=== PATIENT | female | born 1955 | race Caucasian/White ===

== ENCOUNTER 2018-01-30 08:26 | Day surgery (SDC) | payer OTHER ==
[2018-01-30] MEDS ORDERED: LIDOCAINE 1% MDV (10MG/ML) 20ML VIAL SQ ONE (08:27)
[2018-01-30] MEDS ORDERED: PROPOFOL 10 MG/ML VIAL IV ONE (08:27)
--- NOTE | 2018-02-11 12:30 | Operative Note ---
DATE OF SURGERY: 01/30/2018 SURGEON: Richard London MD OPERATION: COLONOSCOPY. INDICATIONS: This is a 62-year-old female with history of colon polyps who had colonoscopy about 3 years ago and presented for surveillance colonoscopy. POSTOPERATIVE DIAGNOSES: 1. Two 6-8 mm sessile polyps in the ascending colon that were removed by cold snare. 2. A 6 mm sessile polyp in the sigmoid colon that was removed by cold snare. 3. A 5 mm sessile polyp in the rectum that was removed by cold snare. ANESTHESIA: Sedation is per Anesthesia. Pulse oximetry was monitored throughout the procedure to maintain O2 saturation of 90% or greater. Supplemental oxygen was administered via nasal cannula. Cardiac and vital signs were monitored throughout the duration of the procedure, and they were stable. The procedure of colonoscopy and risks and alternatives of the procedure, including the risk of bleeding and perforation, among others, were explained to the patient who voiced understanding and agreed to have the procedure done. Physical examination was performed, and the patient was found stable for sedation. PROCEDURE: The patient was placed in the left lateral position. Sedation was initiated. A digital rectal exam was performed and showed some mild external hemorrhoids with no palpable rectal masses. An Olympus PCF-180AL colonoscope was then inserted into the rectum under direct visualization. It was advanced to the cecum without difficulty. The ileocecal valve and appendiceal orifice were identified and photographed. The colonic mucosa was carefully examined upon introduction of the colonoscope. In the ascending colon were two 6-8 mm sessile polyps that were noted and they were removed by cold snare. There were no other lesions noted. The colonoscope was then withdrawn while carefully examining the colonic mucosal surfaces. The cecum, the rest of the ascending colon, transverse colon, and descending colon appeared normal. In the sigmoid colon was a 6 mm sessile polyp that was removed by cold snare. The colonoscope was then withdrawn into the rectum and a 5 mm sessile polyp was noted and was removed by cold snare. Retroflexion was performed and grade 1 internal hemorrhoids were noted. The colonoscope was then withdrawn and the procedure was terminated. The patient tolerated the procedure well without any immediate complications. The patient remained with stable vital signs and was transferred to the recovery room. RECOMMENDATIONS: 1. The patient should be on a high-fiber diet. 2. The patient is to have a repeat colonoscopy for surveillance in 3 or 5 years. Thank you for allowing me to participate in the care of your patient. CC: DO ANGELINE Rich
== END 2018-01-30 10:50 | disposition home or self-care (01) ==
LOC: HOP 08:26
PROVIDERS: ATTEND Internal Medicine Gastroenterology
DX: Z09 Encounter for follow-up examination after completed treatment for conditions other than malignant neoplasm (principal); Z86.010 Personal history of colon polyps; D12.2 Benign neoplasm of ascending colon; D12.5 Benign neoplasm of sigmoid colon; D12.8 Benign neoplasm of rectum; K64.0 First degree hemorrhoids; J44.9 Chronic obstructive pulmonary disease, unspecified

== ENCOUNTER 2018-11-08 12:50 | Observation (INO) | payer OTHER ==
[2018-11-08] MEDS ORDERED: METHYLPREDNISOLONE PF 125MG/VIAL IVP ONE (12:58)
[2018-11-08] MEDS ORDERED: IPRATROPIUM/ALBUTEROL (0.5MG/3MG) NEB INH ONE (12:58)
--- NOTE | 2018-11-08 13:05 | Emergency Department Record ---
History of Present Illness - General Chief Complaint: Cough Stated Complaint: COUGH,ALESSANDRA Time Seen by Provider: 11/08/18 12:52 Source: Patient, Family Mode of Arrival: Ambulatory Limitations: No limitations - History of Present Illness Initial Comments: 63 yo female presents with progressive cough with congestion and shortness of breath. Her cough has been productive. She has COPD and an extensive smoking history. No fever. No leg swelling. The sputum is a clear froth like substance. MD Complaint: Cough, Shortness of breath -: Week(s) Severity: Moderate Quality: Other Consistency: Constant Improves With: Rest Worsens With: Coughing, Exertion Known History Of: COPD Context: Recent URI, Other Associated Symptoms: Chest pain, Cough - Related Data Home Medications Medication Instructions Recorded Confirmed Last Taken Citalopram Hydrobromide 10 mg PO DAILY 11/08/18 11/08/18 11/08/18 [Citalopram HBr] Allergies Allergy/AdvReac Type Severity Reaction Status Date / Time aspirin Allergy Severe VOMITING Verified 11/08/18 12:55 ether Allergy Severe CONVULSIONS Verified 11/08/18 12:55 Review of Systems Constitutional: Reports: Weakness. Denies: Chills, Fever Eyes: Denies: Eye discharge ENT: Reports: Congestion Respiratory: Reports: Cough, Dyspnea, Wheezes. Denies: Hemoptysis Cardiovascular: Reports: Chest pain (with cough), Dyspnea on exertion. Denies: Palpitations, Syncope Endocrine: Reports: Fatigue Gastrointestinal: Denies: Abdominal pain, Diarrhea, Nausea, Vomiting Genitourinary: Denies: Dysuria, Urgency Musculoskeletal: Denies: Arthralgia, Back pain, Joint swelling, Myalgia Skin: Denies: Bruising, Change in color, Rash Neurological: Denies: Headache Psychiatric: Denies: Anxiety Hematological/Lymphatic: Denies: Blood Clots, Easy bleeding, Easy bruising Past Medical History - SOCIAL HISTORY Smoking Status: Current every day smoker - RESPIRATORY Hx Respiratory Disorders: Yes Hx COPD: Yes Hx Pneumonia: Yes - CARDIOVASCULAR Hx Cardio Disorders: No Comment:: . - NEURO Hx Neuro Disorders: Yes Hx Headaches: Yes - GI Hx GI Disorders: Yes Hx Abdominal Pain: Yes (intermittent) Hx of Polyps: Yes Comment:: hx of colon cancer - Hx Genitourinary Disorders: Yes Hx Kidney Stones: Yes - ENDOCRINE Hx Endocrine Disorders: Yes Hx Thyroid Disease: Yes - MUSCULOSKELETAL Hx Musculoskeletal Disorders: Yes Hx Arthritis: Yes (rheumatoid, osteo arthritis) - PSYCH Hx Psych Problems: No - HEMATOLOGY/ONCOLOGY Hx Hematology/Oncology Disorders: Yes Hx Anemia: Yes Hx Cancer: Yes (colon cancer) Hx Chemotherapy: No Hx Radiation Therapy: No Family Medical History Hx Cancer: Father, Brother/Sister *Cancer Comment: father-throat, sister-lung, brother-skin, aunt-breast Hx Heart Disease: Father, Mother, Brother/Sister Physical Exam - General General Appearance: Alert, Oriented x3, Cooperative, No acute distress Limitations: No limitations - Head Head exam: Atraumatic, Normal inspection - Eye Eye exam: Normal appearance, PERRL. negative: Conjunctival injection, Periorbital swelling, Scleral icterus - ENT ENT exam: Normal exam Ear exam: Normal external inspection Nasal Exam: Normal inspection Mouth exam: Normal external inspection - Neck Neck exam: Normal inspection - Respiratory Respiratory exam: Accessory muscle use, Decreased breath sounds, Prolonged expiratory, Rhonchi, Wheezes. negative: Normal lung sounds bilaterally, Respiratory distress - Cardiovascular Cardiovascular Exam: Regular rate, Normal rhythm, Normal heart sounds Peripheral Pulses: 2+: Radial (R), Radial (L) - GI/Abdominal GI/Abdominal exam: Soft. negative: Tenderness - Rectal Rectal exam: Deferred - exam: Deferred - Extremities Extremities exam: Normal inspection. negative: Pedal edema, Tenderness - Back Back exam: Denies: CVA tenderness (R), CVA tenderness (L) - Neurological Neurological exam: Alert, Oriented X3 - Psychiatric Psychiatric exam: Normal affect, Normal mood - Skin Skin exam: Dry, Intact, Normal color, Warm Course - Reevaluation(s) Reevaluation #1: The initial oxygen saturation upper 80's to 90. EMR reviewed. Chest CT demonstrated severe emphysema 12/25/17. 11/08/18 13:06 11/08/18 13:07 EKG #1: 13:05 Rate: 78 Rhythm: sinus [place]: normal Intervals: normal ST segments: normal Normal EKG Prior: None 11/08/18 13:10 11/08/18 13:47 The labs were reviewed. No acute significant changes on the CBC or CMP The Troponin and BNP are negative 11/08/18 13:49 The CXR was reviewed. It is consistent with hyperinflation of COPD. No infiltrate or acute process. 11/08/18 14:11 The patient ambulated to the restroom and returned. Her saturation are 85% on room air and her work of breathing increased. I recommend admission for further care. Medical Decision Making - Lab Data Result diagrams: 11/08/18 13:05 11/08/18 13:05 Disposition Disposition: Admit Clinical Impression: COPD with exacerbation Disposition: Still a Patient at [facility] Decision to Admit: Admit from ER Decision to Admit Date: 11/08/18 Decision to Admit Time: 14:12 Condition: (2) Stable Forms: Patient Portal Access Time of Disposition: 14:12 Quality - Quality Measures Quality Measures: N/A - Blood Pressure Screening Does Patient Have Any of the Following: No Blood Pressure Classification: Hypertensive Reading Systolic Measurement: 146 Diastolic Measurement: 98 Screening for High Blood Pressure: < Pre-Hypertensive BP, F/U Documented > [ [id number]] Pre-Hypertensive Follow-up Interventions: Referral to alternative/primary care provider.
[2018-11-08 13:12] LABS: HEMATOCRIT 41.9 % (35.0-47.0); HEMOGLOBIN 13.4 gm/dl (11.6-16.0); MEAN CELL VOLUME 93.5 fl (81-97); MEAN CORPUSCULAR HEMOGLOBIN 29.9 pg (27-33); MEAN PLATELET VOLUME 8.5 fl (7.4-10.4); PLATELET COUNT 447 K/uL (130-400); RED BLOOD COUNT 4.48 M/uL (3.80-5.40); WHITE BLOOD COUNT W/O DIFF 9.1 K/uL (4.2-12.2)
[2018-11-08 13:46] LABS: ALB/GLOB RATIO 1.1 (1.1-1.8); ALKALINE PHOSPHATASE 113 U/L (35-104); ALT/SGPT 15 U/L (<33); AST/SGOT 18 U/L (10.0-35.0); BLOOD UREA NITROGEN 11 mg/dL (8-23); CREATININE 0.6 mg/dL (0.5-0.9); EST GLOMERULAR FILTRATION RATE > 60 mL/min; GLUCOSE,RANDOM 107 mg/dL (74-109); TOTAL PROTEIN 7.6 g/dL (6.6-8.7)
[2018-11-08] MEDS ORDERED: ALBUTEROL SULFATE (0.083%) 2.5 MG/3 ML NEB INH PRN (15:03)
[2018-11-08] MEDS: METHYLPREDNISOLONE PF 125MG/VIAL IVP SCH (15:05)
[2018-11-08] MEDS ORDERED: PNEUM 23-VAL ADULT IM ONE (15:21)
[2018-11-08] MEDS: NICOTINE 21 MG/24 HOUR PATCH TD SCH (17:23)
[2018-11-08] MEDS: IPRATROPIUM/ALBUTEROL (0.5MG/3MG) NEB INH SCH ×2 (17:58→22:19)
[2018-11-08] MEDS: CEFTRIAXONE 1GM/50ML BAG 1 GM/50 ML BAG IVPB SCH (21:55)
[2018-11-08] MEDS: ACETAMINOPHEN 325 MG TAB PO PRN (22:00)
[2018-11-09] MEDS: METHYLPREDNISOLONE PF 125MG/VIAL IVP SCH ×2 (00:06→06:41)
[2018-11-09] MEDS: IPRATROPIUM/ALBUTEROL (0.5MG/3MG) NEB INH SCH ×5 (05:25→21:42)
[2018-11-09] MEDS: ACETAMINOPHEN 325 MG TAB PO PRN ×3 (06:41→22:19)
[2018-11-09] MEDS: CEFTRIAXONE 1GM/50ML BAG 1 GM/50 ML BAG IVPB SCH ×2 (08:41→22:21)
--- NOTE | 2018-11-09 08:52 | RADIOLOGY REPORT ---
EXAM: CHEST, TWO VIEWS HISTORY: SHORTNESS OF BREATH. HISTORY OF COPD. TECHNIQUE: PA and lateral upright views of the chest were obtained. Comparison: 06/16/18. FINDINGS: The heart, mediastinum, and pulmonary vasculature are normal. The lungs are hyperinflated consistent with COPD. Chronic appearing interstitial changes are present within both lungs. A stable calcified granuloma is present within the right upper lobe. There are no acute infiltrates or effusions. There is no pneumothorax. There is a healing fracture involving the lateral aspect of the right tenth rib. No acute fractures are identified. IMPRESSION: 1. STABLE COPD AND CHRONIC APPEARING INTERSTITIAL CHANGES. 2. HEALING FRACTURE OF THE RIGHT TENTH RIB. 3. NO ACUTE INTRATHORACIC PATHOLOGY. JOB NUMBER: [id number] [facility]
[2018-11-09] MEDS: NICOTINE 21 MG/24 HOUR PATCH TD SCH (09:27)
[2018-11-09] MEDS: AZITHROMYCIN 500 MG TABLET PO SCH (09:27)
[2018-11-09] MEDS ORDERED: LIDOCAINE 5% PATCH TOP PRN (10:41)
--- NOTE | 2018-11-09 11:30 | History & Physical ---
History of Present Illness - Date of Service Date of Service for History & Physical: 11/09/18 - History of Present Illness Admitting Diagnosis: Hypoxia with COPD exacerbation History of Present Illness: Jesenia Kendrick is a 63 y/o female presenting to ED with progressive cough, congestion and shortness of breath. Cough has been productive. Denies fever or leg swelling at home. Reports her about 7 months ago from lung cancer and has been using his [employer] oxygen concentrator at home consistently for the past 3 weeks for her shortness of breath. She does not have a personal history of needing home oxygen. Past medical history includes COPD, heavy smoker , pneumonia, headaches, colon cancer, kidney stones, hypothyroidism. While in ED CBC normal, BNP 192.4, Co2 33. CXR COPD, interstitial changes. EKG NSR. Admitted for oxygen supplementation, IV antibiotics and IV steroids. 11/09/18: sitting in bed comfortably, in no distress. Reports she feel a lot better today compared to the past couple weeks. Is concentrating on continuing to try to quit smoking her her health. Is interested in home oxygen if she should qualify for it. PCP:Isabella Vaughan Milling/Polishing Operator: [facility] Travel Screening - Travel/Exposure Within Last 30 Days Have you traveled within the last 30 days?: Yes Location Detail:: [facility] - Travel/Exposure Within Last Year Have you traveled outside the [place] in the last year?: No - Additonal Travel Details Have you been exposed to anyone with a communicable illness?: No - Travel Symptoms Symptom Screening: None Review of Systems Constitutional: Reports: Weakness. Denies: Chills, Fever Eyes: Denies: Eye discharge ENT: Reports: Congestion Respiratory: Reports: Cough, Dyspnea, Wheezes. Denies: Hemoptysis Cardiovascular: Reports: Chest pain (with cough), Dyspnea on exertion. Denies: Palpitations, Syncope Endocrine: Reports: Fatigue Gastrointestinal: Denies: Abdominal pain, Diarrhea, Nausea, Vomiting Genitourinary: Denies: Dysuria, Urgency Musculoskeletal: Denies: Arthralgia, Back pain, Joint swelling, Myalgia Skin: Denies: Bruising, Change in color, Rash Neurological: Denies: Headache Psychiatric: Denies: Anxiety Hematological/Lymphatic: Denies: Blood Clots, Easy bleeding, Easy bruising Past Medical History - SOCIAL HISTORY Smoking Status: Current every day smoker Alcohol Use: None Drug Use: None - RESPIRATORY Hx Respiratory Disorders: Yes Hx COPD: Yes Hx Pneumonia: Yes - CARDIOVASCULAR Hx Cardio Disorders: No Comment:: . - NEURO Hx Neuro Disorders: Yes Hx Headaches: Yes - GI Hx GI Disorders: Yes Hx Abdominal Pain: Yes (intermittent) Hx of Polyps: Yes Comment:: hx of colon cancer - Hx Genitourinary Disorders: Yes Hx Kidney Stones: Yes - ENDOCRINE Hx Endocrine Disorders: Yes Hx Thyroid Disease: Yes - MUSCULOSKELETAL Hx Musculoskeletal Disorders: Yes Hx Arthritis: Yes (rheumatoid, osteo arthritis) - PSYCH Hx Psych Problems: No Hx Depression: Yes - HEMATOLOGY/ONCOLOGY Hx Hematology/Oncology Disorders: Yes Hx Anemia: Yes Hx Cancer: Yes (colon cancer) Hx Chemotherapy: No Hx Radiation Therapy: No Family Medical History Any Significant Family History?: Yes Hx Cancer: Father, Brother/Sister *Cancer Comment: father-throat, sister-lung, brother-skin, aunt-breast Hx Heart Disease: Father, Mother, Brother/Sister H&P Meds/Allergies - Allergies Allergies: Allergies Allergy/AdvReac Type Severity Reaction Status Date / Time aspirin Allergy Severe VOMITING Verified 11/08/18 12:55 ether Allergy Severe CONVULSIONS Verified 11/08/18 12:55 - Home Medications Home Medications Medication Instructions Recorded Confirmed Last Taken Citalopram Hydrobromide 10 mg PO DAILY 11/08/18 11/08/18 11/08/18 [Citalopram HBr] - Active Medications Active Medications: Current Medications Acetaminophen (Tylenol 325mg) 650 mg PO Q6H PRN PRN Reason: PAIN - MILD(1-4)/FEVER Last Admin: 11/09/18 06:41 Dose: 650 mg Albuterol Sulfate (Albuterol Sulfate) 2.5 mg INH RESP.Q2H PRN PRN Reason: DIFFICULTY IN BREATHING Albuterol/Ipratropium (Duoneb) 3 ml INH RESP.Q4H.[facility] Last Admin: 11/09/18 10:08 Dose: 3 ml Azithromycin (Zithromax) 500 mg PO DAILY [facility] Last Admin: 11/09/18 09:27 Dose: 500 mg Citalopram Hydrobromide (Celexa) 10 mg PO DAILY [facility] CEFTRIAXONE 1GM/50ML BAG (Ceftriaxone 1 Gm-D5w Bag) 1 gm in 50 mls @ 100 mls/ hr IVPB Q12H [facility] Last Infusion: 11/09/18 09:10 Dose: Infused Levothyroxine Sodium (Synthroid) 100 mcg PO DAILYTHY [facility] Lidocaine (Lidoderm) 1 each TOP DAILY PRN PRN Reason: PAIN - MILD TO MODERATE (1-7) Methylprednisolone Sodium Succinate (Solu-Medrol) 60 mg IVP Q8H [facility] Last Admin: 11/09/18 06:41 Dose: 60 mg Nicotine (Nicotine 21mg) 1 patch TD DAILY [facility] Last Admin: 11/09/18 09:27 Dose: 1 patch Physical Exam - Vital Signs Vital Signs: Vital Signs - Last 24 Hrs Temp Pulse Pulse Resp BP BP Pulse Ox 11/09/18 10:12 88 18 95 11/09/18 08:00 98.0 F 89 17 110/57 98 11/09/18 07:40 20 11/09/18 05:30 98.0 F 81 22 135/80 98 11/09/18 05:25 78 20 95 11/09/18 00:00 97.4 F L 90 18 130/70 93 L 11/08/18 22:19 78 18 94 L 11/08/18 20:00 97.6 F 83 22 127/64 92 L 11/08/18 17:58 91 H 20 97 11/08/18 16:44 24 11/08/18 14:54 86 20 133/75 95 11/08/18 14:10 88 20 143/78 83 L 11/08/18 13:12 90 20 99 11/08/18 13:00 97.9 F 87 24 146/98 90 L - General General Appearance: Alert, Oriented x3, Cooperative, No acute distress Limitations: No limitations - Head Head exam: Atraumatic, Normal inspection - Eye Eye exam: Normal appearance, PERRL. negative: Conjunctival injection, Periorbital swelling, Scleral icterus - ENT ENT exam: Normal exam Ear exam: Normal external inspection Nasal Exam: Normal inspection Mouth exam: Normal external inspection - Neck Neck exam: Normal inspection - Respiratory Respiratory exam: Accessory muscle use, Decreased breath sounds, Prolonged expiratory, Rhonchi, Wheezes. negative: Normal lung sounds bilaterally, Respiratory distress - Cardiovascular Cardiovascular Exam: Regular rate, Normal rhythm, Normal heart sounds Peripheral Pulses: 2+: Radial (R), Radial (L) - GI/Abdominal GI/Abdominal exam: Soft. negative: Tenderness - Rectal Rectal exam: Deferred - exam: Deferred - Extremities Extremities exam: Normal inspection. negative: Pedal edema, Tenderness - Back Back exam: Denies: CVA tenderness (R), CVA tenderness (L) - Neurological Neurological exam: Alert, Oriented X3 - Psychiatric Psychiatric exam: Normal affect, Normal mood - Skin Skin exam: Dry, Intact, Normal color, Warm Results - Labs Result Diagrams: 11/08/18 13:05 11/08/18 13:05 Labs Last 24 Hours: Laboratory Results - last 24 hr 11/08/18 11/08/18 13:05 13:05 WBC 9.1 RBC 4.48 Hgb 13.4 Hct 41.9 MCV 93.5 MCH 29.9 MCHC 32.0 RDW 13.0 Plt Count 447 H MPV 8.5 Neutrophils % 64.0 Band Neutrophils % 0.0 Eosinophils % Not Reportable Basophils % Not Reportable Lymphocytes 22.0 Monocytes 14.0 H Basophils 0.0 Eosinophil Count 0.0 Sodium 138 Potassium 3.9 Chloride 95 L Carbon Dioxide 33.0 H Anion Gap 10.0 BUN 11 Creatinine 0.6 Estimated GFR > 60 Random Glucose 107 Calcium 9.2 Total Bilirubin 0.30 AST 18 ALT 15 Alkaline Phosphatase 113 H Troponin T < 0.010 NT-Pro-B Natriuret Pep 192.40 H Total Protein 7.6 Albumin 4.0 Globulin 3.6 Albumin/Globulin Ratio 1.1 VTE H&P Assessment - Risk for VTE Risk for VTE: Yes Risk Level: Low Risk Assessment Date: 11/09/18 Risk Assessment Time: 11:30 VTE Orders Placed or Will Be Placed: Yes Plan - Detailed Diagnosis and Plan (1) COPD with exacerbation Current Visit: Yes Status: Acute Base Code: J44.1 - CHRONIC OBSTRUCTIVE PULMONARY DISEASE W (ACUTE) EXACERBATION Comment: 11/09/18 - CXR- COPD, interstitial changes - EKG NSR - Troponin x 3 <0.010 - Duoneb q 4hr - Albuterol Q2hr PRN - Solumedrol 60mg IVP Q 8hr, change to PO Prednisone in am - Azithromycin 500gm QD - Rocephin 1GM BID - Telemetry - 2L O2 to keep SPO2 88-92 %, will need home O2 qualifier (2) DVT prophylaxis Current Visit: Yes Status: Acute Base Code: [id number] - Comment: 11/09/18 - Nursing to encourage frequent ambulation (3) Full code status Current Visit: Yes Status: Acute Base Code: Z78.9 - OTHER SPECIFIED HEALTH STATUS Comment: 11/09/18
[2018-11-09] MEDS: LEVOTHYROXINE SODIUM 100 MCG TABLET PO SCH (11:49)
[2018-11-09] MEDS: CITALOPRAM 20 MG TABLET PO SCH (11:50)
[2018-11-10] MEDS: GUAIFENESIN 1,200 MG TABLET PO SCH ×2 (04:59→10:11)
[2018-11-10] MEDS: IPRATROPIUM/ALBUTEROL (0.5MG/3MG) NEB INH SCH ×2 (05:37→10:07)
[2018-11-10] MEDS: ACETAMINOPHEN 325 MG TAB PO PRN (06:54)
[2018-11-10] MEDS: LEVOTHYROXINE SODIUM 100 MCG TABLET PO SCH (07:37)
[2018-11-10] MEDS ORDERED: PREDNISONE 20 MG TAB PO SCH (08:00)
--- NOTE | 2018-11-10 08:13 | Discharge Note ---
VTE H&P Assessment - Risk for VTE Risk for VTE: Yes Risk Level: Low Risk Assessment Date: 11/09/18 Risk Assessment Time: 11:30 VTE Orders Placed or Will Be Placed: Yes Discharge Medications - Discharge Medications Prescriptions: Azithromycin [Zithromax] 500 mg PO DAILY #7 tab Cephalexin [Keflex] 500 mg PO QID #40 cap Prednisone [Prednisone 10Mg] 10 mg PO ASDIR #30 tab Home Medications: Ambulatory Orders Albuterol Sulfate [Proair Hfa] 2 puff INH TID PRN #8 04/16/16 [Last Taken ] Levothyroxine Sodium 100 mcg PO DAILY #30 04/16/16 [Last Taken Unknown] Fluticasone/Umeclidin/Vilanter [Trelegy Ellipta 100-62.5-25] 1 each IH DAILY disk 06/16/18 [Last Taken 11/08/18] Lidocaine 1 each TP DAILY PRN patch 06/16/18 [Last Taken 11/08/18] Citalopram Hydrobromide [Citalopram HBr] 10 mg PO DAILY 11/08/18 [Last Taken ] Acetaminophen [Tylenol 325Mg] 650 mg PO Q6H PRN tablet 11/10/18 [Last Taken Unknown] Azithromycin [Zithromax] 500 mg PO DAILY #7 tab 11/10/18 [Last Taken Unknown] Cephalexin [Keflex] 500 mg PO QID #40 cap 11/10/18 [Last Taken Unknown] Ipratropium/Albuterol [Duoneb] 3 ml INH RESP.Q4H.[place] ampul.neb 11/10/18 [Last Taken Unknown] Nicotine [Nicotine 21Mg] 1 patch TD DAILY patch 11/10/18 [Last Taken Unknown] Prednisone [Prednisone 10Mg] 10 mg PO ASDIR #30 tab 11/10/18 [Last Taken Unknown ] Discharge Note - Date Date of Discharge Note: 11/10/18 Condition: (2) Stable Instructions: COPD (Chronic Obstructive Pulmonary Disease) (DC) Additional Instructions: stop cigs and continue to use nicotene patches which are OTC use step one patches patient will be set up with oxygen if she qualifies patient has a nebulizer at home and she has plenty of meds and she uses abluterol neb solution with atrovent solution and she combines them for her treatments every 4 hours or if she is feeling better she could use her trelegy one puff a day follow up with Elaina Vaughan in 3-7 days follow up with pulmonary Dr in 2 weeks follow up with dentis in [facility] for her upper left gum infection and decayed teeth. Please give her a list of dentist take zithromycin 500 mg daily for 7 days take keflex 500 mg four times a day for 10 days prednisone taper from 40 mg daily times 3 days than 30 mg daily times 3 days than 20mg daily times three days than 10 mg daily times three days Forms: Patient Portal Access
[2018-11-10] MEDS ORDERED: ENOXAPARIN 40 MG/0.4 ML SYR SQ SCH (10:00)
[2018-11-10] MEDS: NICOTINE 21 MG/24 HOUR PATCH TD SCH (10:10)
[2018-11-10] MEDS: CITALOPRAM 20 MG TABLET PO SCH (10:10)
[2018-11-10] MEDS: CEFTRIAXONE 1GM/50ML BAG 1 GM/50 ML BAG IVPB SCH (10:10)
[2018-11-10] MEDS: AZITHROMYCIN 500 MG TABLET PO SCH (10:10)
--- NOTE | 2018-11-10 14:50 | Discharge Summary ---
DATE OF ADMISSION: 11/08/2018. Observation patient. DATE OF DISCHARGE: 11/10/2018 ADMITTING DIAGNOSES: 1. Acute bronchitis. 2. COPD exacerbation. 3. Upper gum infection. ATTENDING PHYSICIAN: Mike Escobar D.O. REASON FOR HOSPITALIZATION: This patient had a cough for 2 weeks, progressively worse. Seen in the emergency department by Dr. Li and admitted to the hospital for IV antibiotics, IV Solu-Medrol, breathing treatments, and further evaluation. She has been using her 's oxygen, who 7 months ago, and she says that her pulse ox goes down when she has a way of checking it at home. We will be qualifying her today for home oxygen, if she still qualifies on the day of discharge. SIGNIFICANT FINDINGS FROM EXAMINATION: Chest x-ray shows hyperinflation, lungs with no acute process, healed 10th rib. She did have a CT of her chest in December 2017, which showed severe emphysema. EKG showing normal sinus rhythm, no acute change. LABORATORY DATA: BNP was 192. She still smokes cigarettes. Her labs show WBC 9,100. Troponin-T was negative x1. Her potassium is 3.9. THERAPY PROVIDED: The patient was given DuoNeb treatments every 4 hours, IV Solu-Medrol, IV Rocephin and azithromycin. HOSPITAL COURSE: She gradually improved, feeling much better on the day of discharge. CONDITION AT DISCHARGE: Much improved. DISCHARGE INSTRUCTIONS: Follow up with Dr. Isabella Vaughan in 3-7 days. Follow up with her pulmonary doctor in 2 weeks. Follow up with a dentist in the next week. We will give her a dental list, because she has an infected upper gum on the left side and decayed teeth to the gums. Stop cigarettes. She uses a nebulizer at home. She states she has plenty of medications. She uses a separate albuterol solution with Atrovent solution and puts them together for [id number] p.r.n. treatment, or she uses the Trilogy 1 puff a day. We will send her home with a prednisone taper 40 mg a day for 3 days, 30 mg a day for 3 days, 20 mg a day for 3 days, 10 mg a day for 3 days; azithromycin 500 mg daily for 7 days, Keflex 500 mg q.i.d. for 10 days. She is to continue her home Lidoderm patches, levothyroxine 100 mcg daily, Celexa 10 mg daily, and she has a ProAir inhaler that she uses p.r.n. MTDD
== END 2018-11-10 13:10 | disposition home or self-care (01) ==
LOC: ER 12:50 → MEDSURG 15:01 → INTOOBSV 15:01
PROVIDERS: ADMIT Internal Medicine; ATTEND Internal Medicine
DX: J44.1 Chronic obstructive pulmonary disease with (acute) exacerbation (principal); R05 Cough; E03.9 Hypothyroidism, unspecified; M06.9 Rheumatoid arthritis, unspecified; M19.90 Unspecified osteoarthritis, unspecified site; D64.9 Anemia, unspecified; F17.210 Nicotine dependence, cigarettes, uncomplicated; Z85.038 Personal history of other malignant neoplasm of large intestine; Z87.442 Personal history of urinary calculi
CPT/HCPCS: 99285 ×2; 96374; 96375; 80053; 84484; 85027; 83880; 71046; 94640 ×4; 94618; 94761 ×3; 93005; 93010; G0378 ×3; J7512; J0696 ×3; 99220; J1650; J2930

== ENCOUNTER 2019-01-29 16:51 | Emergency (ER) | payer OTHER | END 2019-01-29 17:00 | disposition left against medical advice (07) | LOC: ER 16:51 | DX: Z53.20 Procedure and treatment not carried out because of patient's decision for unspecified reasons (principal) ==